=== PATIENT | male | born 1945 | race Caucasian/White ===

== ENCOUNTER 2022-08-01 09:08 | Observation (INO) | payer OTHER, MEDICARE ==
[2022-08-01] VITALS (9 sets, daily range): BP systolic 130–176; BP diastolic 56–85
[~2022-08-01] VITALS: Ht 175.3 cm; Wt 80.0 kg
--- NOTE | 2022-08-01 09:15 | NUR ---
PATIENT WHEELED TO ROOM 14, JENI AT SIDE, CALL LIGHT IN REACH, PROVIDER NOTIFIED.
--- NOTE | 2022-08-01 09:25 | NUR ---
PATIENT TO ROOM 14
[2022-08-01 09:36] LABS: BASO% 0.6 % (0-3); EOS% 6.1 % (0-8); HEMATOCRIT 44.7 % (39.0-50.0); HEMOGLOBIN 14.6 g/dl (14.0-18.0); IMMATURE GRANULOCYTES 0.2 % (0.0-5.0); LYMPH% 22.1 % (15-41); MEAN CELL VOLUME 93.1 fL CALC (80.0-100.0); MEAN CORPUSCULAR HGB 30.4 pG CALC (26.0-32.0); MEAN CORPUSCULAR HGB CONC 32.7 g/dL CAL (32.0-36.0); NEUT# 2.96 thou/uL (1.82-7.42); RED BLOOD COUNT 4.8 mill/uL (4.70-6.10); RED CELL DISTRI WIDTH 13.4 % (11.5-15.5)
[2022-08-01] MEDS ORDERED: HYDROCHLOROT25 MG PO (09:43)
[2022-08-01] MEDS ORDERED: METFORMIN500 M2 PO (09:44)
[2022-08-01] MEDS ORDERED: LOSARTAN POTASS50 MG PO (09:44)
[2022-08-01] MEDS ORDERED: ATORVASTATIN CA40 MG PO (09:44)
[2022-08-01] MEDS ORDERED: AMLODIPINE BESYL5 MG PO (10:03)
[2022-08-01] MEDS ORDERED: CALCIUM500 MG/D PO (10:06)
[2022-08-01 10:08] LABS: ALBUMIN 4.4 g/dL (3.2-5.0); ALKALINE PHOSPHATASE 49 u/l (38-126); ANION GAP 12 (6-22 (CALC)); BILIRUBIN, TOTAL 0.4 mg/dL (0.2-1.3); BUN 18 mg/dL (8-23); BUN/CREATININE RATIO 21 (12-20 (CALC)); CARBON DIOXIDE 28 mmol/l (22-30); CHLORIDE 102 mmol/l (95-108); CREATININE 0.9 mg/dL (0.7-1.3); GFR FOR AFR.AMER. > 60 ML/MIN (>=60 (CALC)); GFR OTHER RACES > 60 ML/MIN (>=60 (CALC)); POTASSIUM 3.6 mmol/l (3.5-5.1); SGOT/AST 30 u/l (19-48); SODIUM 139 mmol/l (137-146); TOTAL PROTEIN 7.3 g/dL (6.3-8.2)
--- NOTE | 2022-08-01 10:22 | NUR ---
Reassessment of patient completed. No distress noted.
--- NOTE | 2022-08-01 12:41 | NUR ---
PATIENT TO MEDICAL/SURGICAL AT THIS TIME.
--- NOTE | 2022-08-01 14:39 | NUR ---
1245 PT ARRIVED TO FLOOR VIA WC, PT AMBULATORY WITH NO S/S OF DISTRESS NOTED. BEDSIDE REPORT RECEIVED FROM HAILEY TORRES. PT ALERT AND ORIENTED X 4. NO C/O CHEST PAIN OR DISCOMFORT. RESP EVEN AND UNLABORED. PT ORIENTED TO ROOM, CALL POE, AND BED CONTROLS. AT BEDSIDE WITH PATIENT. WEIGHT OBTAINED AT BEDSIDE AND VSS. PT UPDATED ON POC, VERBALIZES UNDERSTANDING AND DENOES QUESTIONS. TELE IN PLACE. ALL PERSONAL ITEMS WITHIN REACH. SAFETY PRECAUTIONS IN PLACE.
--- NOTE | 2022-08-01 20:00 | NUR ---
PATIENT SITTING UP ON COUCH AT THIS TIME-AWAKE ALERT AND ORIENTEDX3 WITH NO COMPLAINTS AT THIS TIME. STATES NO CHEST PAIN, PALPATATIONS OR SOB AT THIS TIME. SKIN IS WARM AND DRY. COLOR IS GOOD. TELE MONITOR IN PLACE WITH LAST READING SB-58. PATIENT STATES THAT HE ALREADY TOOK HIS HS MEDS-HIS BROUGHT THEM IN AND HE TOOK THEM. INSTRUCTED PATIENT THAT HE SHOULD BE TAKING MEDS ORDERED FROM STAFF AND NOT FROM HIS MEDS AT HOME. MEDS CAN BE CHANGED OR MODIFIED WHEN IN THE HOSPITAL AND CAN INCREASE THE CHANCE FOR EITHER TOO MUCH OF MED OR TOO LITTLE OF MED DEPENDING ON THE PATIENT NEEDS. VERBALIZES U NDERSTANDING OF THE STATED. LUNGS ARE CLEAR AND ABD IS SOFT WITH ACTIVE BS. LAST BM WAS TODAY. DENIES ANY DIFFICULTY WITH URINATION. NO PERIPHERAL EDEMA NOTED. PULSES ARE PALPABLE. CALL LIGHT IN REACH. WILL CONT TO MONITOR.
--- NOTE | 2022-08-01 21:00 | NUR ---
REMAINS SITTING UP ON COUCH. GLUCOSE METER WAS 138. NO HUMALOG COVERAGE NEEDED AT THIS TIME. HS SNACK PROVIDED FOR PATIENT. CALL LIGHT IN REACH.WILL CONT TO MONITOR.
--- NOTE | 2022-08-01 23:54 | NUR ---
LAST TROP WAS 0.040. TRENDING DOWN AND WNL. CALL LIGHT IN REACH. WILL CONT TO MONITOR.
[2022-08-02 00:24] VITALS: BP 132/62
--- NOTE | 2022-08-02 04:00 | NUR ---
RESTING IN BED AT THIS TIME-NO COMPLAINTS. SALINE LOCK TO RAC INTACT. TELE MONITOR IN PLACE. CALL LIGHT IN REACH. WILL CONT TO MONITOR.
[2022-08-02 04:49] VITALS: BP 147/66
[2022-08-02 05:39] LABS: BASO% 1.1 % (0-3); EOS% 5.5 % (0-8); HEMATOCRIT 40.9 % (39.0-50.0); HEMOGLOBIN 13.5 g/dl (14.0-18.0); IMMATURE GRANULOCYTES 0.2 % (0.0-5.0); LYMPH% 28.9 % (15-41); MONO% 12.2 % (2-13); NEUT# 2.87 thou/uL (1.82-7.42); NEUT% 52.1 % (42-76); RED BLOOD COUNT 4.35 mill/uL (4.70-6.10); RED CELL DISTRI WIDTH 13.5 % (11.5-15.5)
[2022-08-02 06:37] VITALS: BP 161/70
[2022-08-02 06:38] VITALS: BP 161/70
[2022-08-02 06:42] LABS: ALBUMIN 3.7 g/dL (3.2-5.0); ALKALINE PHOSPHATASE 47 u/l (38-126); ANION GAP 8 (6-22 (CALC)); BUN 18 mg/dL (8-23); BUN/CREATININE RATIO 17 (12-20 (CALC)); CALCULATED LDLCHOLESTEROL 67 mg/dL (62-129 (CALC)); CARBON DIOXIDE 28 mmol/l (22-30); CHLORIDE 104 mmol/l (95-108); CHOLESTEROL HDL RATIO 3.3 (<4.4 (CALC)); GFR FOR AFR.AMER. > 60 ML/MIN (>=60 (CALC)); GFR OTHER RACES > 60 ML/MIN (>=60 (CALC)); HDL CHOLESTEROL 46 mg/dL (39.0-59.0); MAGNESIUM 1.9 mg/dL (1.6-2.3); POTASSIUM 3.2 mmol/l (3.5-5.1); SGOT/AST 27 u/l (19-48); SODIUM 136 mmol/l (137-146); TOTAL CHOLESTEROL 153 mg/dl (0-199); TOTAL PROTEIN 6.1 g/dL (6.3-8.2); TOTAL TRIGLYCERIDES 195 mg/dl (0-149); VLDL CHOLESTROL 39 mg/dl (0-38 (CALC))
--- NOTE | 2022-08-02 08:00 | NUR ---
ASSUMED CARE OF PT. PT DENIES ANY CHEST PAIN LAST NIGHT. DENIES ANY CP AT THE MOMENT. SB ON THE MONITOR. ASSESSMENT COMPLETE. NO ABNORAL FINDINGS. PT SITTING IN CHAIR. PLAN OF CARE DISCUSSED.
[2022-08-02] MEDS ORDERED: NITROSTAT0.4 MG SL (10:05)
[2022-08-02] MEDS ORDERED: ASPIRIN 81 LOW81 MG PO (10:05)
[2022-08-02 10:06] VITALS: BP 159/71
--- NOTE | 2022-08-02 12:05 | NUR ---
DISCHARGE PAPERWORK REVIEWED WITH PT. PT AWARE OF FOLLOW UP, MEDICATIONS DUE NEXT, AND WHEN TO CALL 911 OR PROVIDER. INSTRUCTION ON HOW TO USE NITROGLYCERIN GIVEN. NO QUESTIONS AT THIS TIME. AMBULATORY. WALKED OUT WITH IN STABLE CONDITIONS.
== END 2022-08-02 12:00 | disposition home or self-care (01) | DRG 313 ==
LOC: ED 09:08 → ED-I 11:20 → ED 11:20 → ED-I 11:20 → ED 11:32 → MS2 11:33
PROVIDERS: Family Medicine; ADMIT Internal Medicine; ATTEND Internal Medicine
DX: R07.9 Chest pain, unspecified (principal); R51.9 Headache, unspecified; R53.83 Other fatigue; I10 Essential (primary) hypertension; R73.03 Prediabetes; E78.5 Hyperlipidemia, unspecified; Z79.84 Long term (current) use of oral hypoglycemic drugs
CPT/HCPCS: J1650

== ENCOUNTER 2023-06-15 14:03 | Inpatient (IN) | payer OTHER, MEDICARE ==
[2023-06-15] VITALS (10 sets, daily range): BP systolic 150–168; BP diastolic 54–77
[~2023-06-15] VITALS: Ht 175.3 cm; Wt 77.0 kg
[~2023-06-15 14:03] MED LIST: AMLODIPINE BESYL5 MG PO; ASPIRIN 81 LOW81 MG PO; ATORVASTATIN CA40 MG PO; CALCIUM500 MG/D PO; HYDROCHLOROT25 MG PO; LOSARTAN POTASS50 MG PO; METFORMIN500 M2 PO; NITROSTAT0.4 MG SL
[2023-06-15] MEDS ORDERED: PRESERVISION ARED1 PO (14:51)
[2023-06-15 15:44] LABS: URINE BLOOD DIPSTICK Large (NEGATIVE); URINE COLOR Red; URINE GLUCOSE - DIPSTICK Negative (NEGATIVE); URINE KETONE 15 mg/dL (NEGATIVE); URINE LEUK ESTERASE Large (NEGATIVE); URINE NITRITE - DIPSTICK Positive (Negative); URINE PROTEIN - DIPSTICK >=300 mg/dL (NEG-TRACE)
[2023-06-15 15:44] LABS: BASO% 0.2 % (0-3); EOS% 2.9 % (0-8); HEMATOCRIT 43.8 % (39.0-50.0); HEMOGLOBIN 14.5 g/dl (14.0-18.0); IMMATURE GRANULOCYTES 0.1 % (0.0-5.0); LYMPH% 10.4 % (15-41); MEAN CELL VOLUME 93.6 fL CALC (80.0-100.0); MEAN CORPUSCULAR HGB CONC 33.1 g/dL CAL (32.0-36.0); MONO% 7.4 % (2-13); NEUT# 6.83 thou/uL (1.82-7.42); RED BLOOD COUNT 4.68 mill/uL (4.70-6.10); RED CELL DISTRI WIDTH 13.5 % (11.5-15.5)
[2023-06-15 15:46] LABS: URINE RBC TNTC RBC/hpf (0-5)
[2023-06-15 16:01] LABS: PROTHROMBIN TIME 9.9 SECONDS (9.0-12.5)
[2023-06-15 16:05] LABS: ALKALINE PHOSPHATASE 68 u/l (38-126); BUN 15 mg/dL (8-23); BUN/CREATININE RATIO 21 (12-20 (CALC)); CARBON DIOXIDE 31 mmol/l (22-30); CHLORIDE 102 mmol/l (95-108); CREATININE 0.7 mg/dL (0.7-1.3); GFR FOR AFR.AMER. > 60 ML/MIN (>=60 (CALC)); GFR OTHER RACES > 60 ML/MIN (>=60 (CALC)); SODIUM 138 mmol/l (137-146); TOTAL PROTEIN 6.9 g/dL (6.3-8.2)
[2023-06-15 16:13] LABS: ALBUMIN 4.5 g/dL (3.2-5.0); ANION GAP 9 (6-22 (CALC)); POTASSIUM 4.2 mmol/l (3.5-5.1); SGOT/AST 74 u/l (19-48)
[2023-06-16 00:03] VITALS: BP 146/54
[2023-06-16 00:10] VITALS: BP 146/54
[2023-06-16 04:18] VITALS: BP 128/67
[2023-06-16 04:38] LABS: BASO% 0.2 % (0-3); HEMATOCRIT 38.2 % (39.0-50.0); IMMATURE GRANULOCYTES 0.1 % (0.0-5.0); MEAN CELL VOLUME 94.1 fL CALC (80.0-100.0); MEAN CORPUSCULAR HGB 30.5 pG CALC (26.0-32.0); MEAN CORPUSCULAR HGB CONC 32.5 g/dL CAL (32.0-36.0); MONO% 7.3 % (2-13); NEUT# 6.98 thou/uL (1.82-7.42); NEUT% 83.4 % (42-76); RED BLOOD COUNT 4.06 mill/uL (4.70-6.10); RED CELL DISTRI WIDTH 13.7 % (11.5-15.5)
[2023-06-16 04:49] LABS: HEMOGLOBIN 12.4 g/dl (14.0-18.0)
[2023-06-16 05:05] LABS: ANION GAP 8 (6-22 (CALC)); BUN 14 mg/dL (8-23); BUN/CREATININE RATIO 18 (12-20 (CALC)); CARBON DIOXIDE 28 mmol/l (22-30); CHLORIDE 105 mmol/l (95-108); CREATININE 0.8 mg/dL (0.7-1.3); GFR FOR AFR.AMER. > 60 ML/MIN (>=60 (CALC)); GFR OTHER RACES > 60 ML/MIN (>=60 (CALC)); SODIUM 137 mmol/l (137-146)
[2023-06-16 07:15] VITALS: BP 151/61
[2023-06-16 17:45] VITALS: BP 158/67
[2023-06-16 19:15] VITALS: BP 154/54
[2023-06-17 03:40] VITALS: BP 169/63
[2023-06-17 05:59] LABS: BASO% 0.2 % (0-3); EOS% 3.1 % (0-8); HEMATOCRIT 40.4 % (39.0-50.0); HEMOGLOBIN 13.4 g/dl (14.0-18.0); IMMATURE GRANULOCYTES 0.2 % (0.0-5.0); LYMPH% 11.7 % (15-41); MEAN CELL VOLUME 94.6 fL CALC (80.0-100.0); MEAN CORPUSCULAR HGB 31.4 pG CALC (26.0-32.0); MEAN CORPUSCULAR HGB CONC 33.2 g/dL CAL (32.0-36.0); MONO% 11.6 % (2-13); NEUT# 6.23 thou/uL (1.82-7.42); NEUT% 73.2 % (42-76); RED BLOOD COUNT 4.27 mill/uL (4.70-6.10); RED CELL DISTRI WIDTH 13.5 % (11.5-15.5)
[2023-06-17 06:25] LABS: ANION GAP 9 (6-22 (CALC)); BUN 9 mg/dL (8-23); BUN/CREATININE RATIO 14 (12-20 (CALC)); CARBON DIOXIDE 25 mmol/l (22-30); CHLORIDE 109 mmol/l (95-108); CREATININE 0.7 mg/dL (0.7-1.3); GFR FOR AFR.AMER. > 60 ML/MIN (>=60 (CALC)); GFR OTHER RACES > 60 ML/MIN (>=60 (CALC)); POTASSIUM 3.8 mmol/l (3.5-5.1); SODIUM 139 mmol/l (137-146)
[2023-06-17 08:50] VITALS: BP 118/61
[2023-06-17 16:23] VITALS: BP 153/60
[2023-06-17 19:40] VITALS: BP 147/59
[2023-06-18 03:26] VITALS: BP 147/60
[2023-06-18 05:09] LABS: BASO% 0.3 % (0-3); EOS% 2.3 % (0-8); HEMATOCRIT 38.5 % (39.0-50.0); HEMOGLOBIN 12.9 g/dl (14.0-18.0); IMMATURE GRANULOCYTES 0.1 % (0.0-5.0); LYMPH% 12.2 % (15-41); MEAN CELL VOLUME 93.2 fL CALC (80.0-100.0); MEAN CORPUSCULAR HGB 31.2 pG CALC (26.0-32.0); MEAN CORPUSCULAR HGB CONC 33.5 g/dL CAL (32.0-36.0); MONO% 15.8 % (2-13); NEUT# 6.04 thou/uL (1.82-7.42); NEUT% 69.3 % (42-76); RED BLOOD COUNT 4.13 mill/uL (4.70-6.10); RED CELL DISTRI WIDTH 13.5 % (11.5-15.5)
[2023-06-18 05:37] LABS: ANION GAP 8 (6-22 (CALC)); BUN 10 mg/dL (8-23); BUN/CREATININE RATIO 16 (12-20 (CALC)); CARBON DIOXIDE 25 mmol/l (22-30); CHLORIDE 107 mmol/l (95-108); CREATININE 0.6 mg/dL (0.7-1.3); GFR FOR AFR.AMER. > 60 ML/MIN (>=60 (CALC)); GFR OTHER RACES > 60 ML/MIN (>=60 (CALC)); POTASSIUM 3.4 mmol/l (3.5-5.1); SODIUM 136 mmol/l (137-146)
[2023-06-18 06:55] VITALS: BP 133/63
[2023-06-18 15:01] VITALS: BP 158/63
[2023-06-18 19:24] VITALS: BP 136/55
[2023-06-18 23:02] VITALS: BP 137/56
[2023-06-19 04:21] VITALS: BP 148/63
[2023-06-19 04:57] VITALS: BP 148/63
[2023-06-19 05:30] LABS: BASO% 0.2 % (0-3); EOS% 1.5 % (0-8); HEMATOCRIT 40.1 % (39.0-50.0); HEMOGLOBIN 13.3 g/dl (14.0-18.0); IMMATURE GRANULOCYTES 0.2 % (0.0-5.0); LYMPH% 12.4 % (15-41); MEAN CORPUSCULAR HGB 30.9 pG CALC (26.0-32.0); MEAN CORPUSCULAR HGB CONC 33.2 g/dL CAL (32.0-36.0); MONO% 15.3 % (2-13); NEUT# 6.26 thou/uL (1.82-7.42); NEUT% 70.4 % (42-76); RED BLOOD COUNT 4.31 mill/uL (4.70-6.10); RED CELL DISTRI WIDTH 13.6 % (11.5-15.5)
[2023-06-19 05:50] LABS: ANION GAP 9 (6-22 (CALC)); BUN 11 mg/dL (8-23); BUN/CREATININE RATIO 17 (12-20 (CALC)); CARBON DIOXIDE 24 mmol/l (22-30); CHLORIDE 108 mmol/l (95-108); CREATININE 0.7 mg/dL (0.7-1.3); GFR FOR AFR.AMER. > 60 ML/MIN (>=60 (CALC)); GFR OTHER RACES > 60 ML/MIN (>=60 (CALC)); POTASSIUM 3.7 mmol/l (3.5-5.1); SODIUM 137 mmol/l (137-146)
[2023-06-19 07:29] VITALS: BP 151/61
[2023-06-19 16:12] VITALS: BP 162/63
[2023-06-19 19:00] VITALS: BP 158/61
[2023-06-20 04:27] VITALS: BP 148/63
[2023-06-20 06:27] VITALS: BP 155/61
[2023-06-20 06:38] LABS: BASO% 0.3 % (0-3); EOS% 0.8 % (0-8); HEMATOCRIT 39.9 % (39.0-50.0); HEMOGLOBIN 13.3 g/dl (14.0-18.0); IMMATURE GRANULOCYTES 0.3 % (0.0-5.0); LYMPH% 13.8 % (15-41); MEAN CELL VOLUME 93.4 fL CALC (80.0-100.0); MEAN CORPUSCULAR HGB 31.1 pG CALC (26.0-32.0); MEAN CORPUSCULAR HGB CONC 33.3 g/dL CAL (32.0-36.0); MONO% 10.6 % (2-13); NEUT# 4.55 thou/uL (1.82-7.42); NEUT% 74.2 % (42-76); RED BLOOD COUNT 4.27 mill/uL (4.70-6.10); RED CELL DISTRI WIDTH 13.7 % (11.5-15.5)
[2023-06-20 07:04] LABS: ALKALINE PHOSPHATASE 57 u/l (38-126); ANION GAP 9 (6-22 (CALC)); BUN 12 mg/dL (8-23); BUN/CREATININE RATIO 18 (12-20 (CALC)); CARBON DIOXIDE 24 mmol/l (22-30); CHLORIDE 109 mmol/l (95-108); CREATININE 0.7 mg/dL (0.7-1.3); GFR FOR AFR.AMER. > 60 ML/MIN (>=60 (CALC)); GFR OTHER RACES > 60 ML/MIN (>=60 (CALC)); MAGNESIUM 2.2 mg/dL (1.6-2.3); POTASSIUM 3.9 mmol/l (3.5-5.1); SGOT/AST 26 u/l (19-48); SODIUM 139 mmol/l (137-146); TOTAL PROTEIN 5.7 g/dL (6.3-8.2)
[2023-06-20 07:21] LABS: ALBUMIN 3.2 g/dL (3.2-5.0); BILIRUBIN, TOTAL 0.4 mg/dL (0.2-1.3)
[2023-06-20 08:53] VITALS: BP 155/61
== END 2023-06-20 14:43 | disposition home or self-care (01) | DRG 690 ==
LOC: ED 14:03 → ED-I 16:23 → ED 19:01 → MS2 19:02
PROVIDERS: Nurse Practitioner; Nurse Practitioner Family; ADMIT Student in an Organized Health Care Education/Training Program; ATTEND Student in an Organized Health Care Education/Training Program
PROC: 0TCB8ZZ Extirpation of Matter from Bladder, Via Natural or Artificial Opening Endoscopic (ICD-10-PCS; principal; 2023-06-15)
PROC: 0T9B70Z Drainage of Bladder with Drainage Device, Via Natural or Artificial Opening (ICD-10-PCS; 2023-06-16)
PROC: 0S9D3ZZ Drainage of Left Knee Joint, Percutaneous Approach (ICD-10-PCS; 2023-06-19)
DX: N13.6 Pyonephrosis (principal); I10 Essential (primary) hypertension; E11.9 Type 2 diabetes mellitus without complications; M25.462 Effusion, left knee; M17.12 Unilateral primary osteoarthritis, left knee; E78.00 Pure hypercholesterolemia, unspecified; N40.0 Benign prostatic hyperplasia without lower urinary tract symptoms; Z79.84 Long term (current) use of oral hypoglycemic drugs; Z20.822 Contact with and (suspected) exposure to COVID-19
CPT/HCPCS: C1769; J1650; Q9966; Q9967